=== PATIENT | female | born 1945 | race Caucasian/White ===

== ENCOUNTER → 2016-10-01 | Outpatient (CLI) | payer MEDICARE, OTHER ==
[2016-10-01 10:31] LABS: Basophils # (A) 0.1 k/uL (0-0.2); Basophils % (A) 1 %; CHCM 33.5; Eosinophils # (A) 0.2 k/uL (0-0.7); Eosinophils % (A) 3 %; HCT 43.4 % (34.0-46.0); HGB 14.5 gm/dL (11.4-16.0); Luc # (Auto) 0.15; Luc % (Auto) 3; Lymphocytes # (A) 1.5 k/uL (1.0-4.8); Lymphocytes % (A) 25 %; MCH 31.2 pg (25.0-35.0); MCHC 33.5 g/dL (31.0-37.0); MCV 93.1 fL (80.0-100.0); Mean Platelet Volume 7.3; Monocytes # (A) 0.3 k/uL (0-1.0); Monocytes % (A) 4 %; Neutrophils # (A) 3.9 k/uL (1.3-7.7); Neutrophils % (A) 65 %; RBC 4.66 m/uL (3.80-5.40); RDW 13.9 % (11.5-15.5); WBC (Perox) 5.96
[2016-10-01 10:44] LABS: ALT 54 U/L (9-52); AST 46 U/L (14-36); Alkaline Phosphatase 84 U/L (38-126); Anion Gap 9 mmol/L; Blood Urea Nitrogen 9 mg/dL (7-17); Calcium 9.9 mg/dL (8.4-10.2); Carbon Dioxide 31 mmol/L (22-30); Chloride 100 mmol/L (98-107); Cholesterol 244 mg/dL (<200); Glucose 222 mg/dL (74-99); HDL Cholesterol 80 mg/dL (40-60); Non-African American GFR(MDRD) >60 (>60 ml/min/1.73 sqM); Potassium 4.9 mmol/L (3.5-5.1); Sodium 140 mmol/L (137-145); Total Protein 7.2 g/dL (6.3-8.2); Triglycerides 157 mg/dL (<150)
[2016-10-01 11:45] LABS: Hemoglobin A1C 8.1 % (4.2-6.1)
== END | disposition home or self-care (01) ==
LOC: LABWHC1 09:27
PROVIDERS: ATTEND Internal Medicine Gastroenterology
DX: R10.9 Unspecified abdominal pain (principal); R19.7 Diarrhea, unspecified; K76.0 Fatty (change of) liver, not elsewhere classified; I10 Essential (primary) hypertension; E03.9 Hypothyroidism, unspecified; E11.9 Type 2 diabetes mellitus without complications; Z79.899 Other long term (current) drug therapy
CPT/HCPCS: 36415; 80053; 80061; 82043; 82306; 83036; 84439; 84443; 85025

== ENCOUNTER → 2016-10-29 | Outpatient (CLI) | payer MEDICARE, OTHER ==
--- NOTE | 2016-10-29 15:38 | US ---
EXAMINATION TYPE: US thyroid st tissue head/neck DATE OF EXAM: 10/29/2016 3:24 PM COMPARISON: prior us in pacs Real-time, linear array sonography is performed over the bilateral thyroid lobes. CLINICAL HISTORY: E04.1 Thyroid nodule. pt states palpable areas along rt side of thyroid area; [facility] thyroid meds GLAND SIZE: Right Lobe: 4.4 x 1.2 x 0.9 cm Overall Parenchyma: heterogenous Left Lobe: 4.6 x 1.9 x 1.2 cm Overall Parenchyma: heterogeneous Isthmus Thickness: 0.4 cm NODULES RIGHT: # of nodules measured on right: 0 LEFT: # of nodules measured on left: 0 ISTHMUS: # of nodules measured in the isthmus: 0 Bilateral neck scanned, no evidence of lymphadenopathy. Overall very lobular, heterogeneous and attenuating thyroid tissue. Unable to distinct visualize ind ividual nodules. Patient's palpable area corresponds to nodularity around isthmus area. IMPRESSION: Thyroid tissue is somewhat lobular and heterogeneous correlate for thyroiditis. No distinct solid or cystic nodules.
[2016-10-29 17:46] LABS: Hepatitis C Virus IgG Index 0.01
[2016-10-29 17:48] LABS: Hepatitis C Virus IgG Ab Negative (Negative)
--- NOTE | 2016-11-01 13:12 | MM ---
Reason for exam: screening (asymptomatic). Last mammogram was performed 1 year ago. History: Patient is postmenopausal and has history of colon cancer at age 63. Benign left mammotome panel of the left breast, July 05, 2007. Took hormonal contraceptives for 3 years beginning at age 19. Physical Findings: A clinical breast exam by your physician is recommended on an annual basis and results should be correlated with mammographic findings. MG Screening Mammo w CAD Bilateral CC and MLO view(s) were taken. Prior study comparison: October 27, 2015, bilateral MG screening mammo w CAD. September 17, 2014, bilateral MG diagnostic mammo w CAD [facility]. The breast tissue is almost entirely fat. Previous mammotome biopsy within the left breast. No significant changes when compared with prior studies. ASSESSMENT: Benign, BI-RAD 2 RECOMMENDATION: Routine screening mammogram of both breasts in 1 year.
== END | disposition home or self-care (01) ==
LOC: RADUSWWP 14:52
PROVIDERS: ATTEND Family Medicine
DX: Z12.31 Encounter for screening mammogram for malignant neoplasm of breast (principal); E04.1 Nontoxic single thyroid nodule; G47.00 Insomnia, unspecified; J30.2 Other seasonal allergic rhinitis
CPT/HCPCS: 86803; 84439; 84443; 76536; G0202

== ENCOUNTER 2017-03-30 08:07 | Day surgery (SDC) | payer MEDICARE, OTHER ==
[2017-03-28 14:55] VITALS: BMI 31.7
[~2017-03-30 08:07] MED LIST: LACTATED RINGERS 1,000 ML IV SCH
[2017-03-30 09:19] LABS: Glucose,Whole Blood 197 mg/dL (75-99)
[2017-03-30 09:34] VITALS: RESP 18; TEMP 98.3
[2017-03-30] MEDS ORDERED: LIDOCAINE 1% 20 ML VIAL (10MG/ML) FOR IV START INTRADERMA ONE (09:53)
[2017-03-30] MEDS ORDERED: PROPOFOL 10 MG/ML 20 ML VIAL IV ONE (10:17)
[2017-03-30] MEDS ORDERED: LIDOCAINE 1% INJ 10MG/ML (20 ML MDV) ONE (10:17)
[2017-03-30 10:38] VITALS: BP 116/63; PULSE 73
--- NOTE | 2017-03-30 11:02 | P.PCN ---
Date of Procedure: 03/30/17 Preoperative Diagnosis: Postoperative Diagnosis: Procedure(s) Performed: BRIEF HISTORY: Patient is a 71-year-old pleasant white female, scheduled for an elective colonoscopy as a part of surveillance of prior history of colon cancer diagnosed in 2009 for which she underwent right hemicolectomy. Her last colonoscopy was 4 years ago and was noted to have a tumor adenoma. PROCEDURE PERFORMED: Colonoscopy with biopsy. PREOPERATIVE DIAGNOSIS: History of colon cancer and colon polyps. IV sedation per Anesthesia. PROCEDURE: After informed consent was obtained, the patient, was brought into the endoscopy unit. IV sedation was administered by Anesthesia under continuous monitoring. Digital rectal examination was normal. Initially the Olympus CF- 160 flexible video colonoscope was then inserted in the rectum, gradually advanced into the right colon with ileocolonic anastomosis was visualized and appeared normal. The ascending colon, transverse colon, descending colon, sigmoid colon, and rectum appeared normal. In the mid transverse colon there was a 5 mm polyp that was removed by biopsy. Retroflexion was performed in the rectum and no lesions were seen. The patient tolerated the procedure well. IMPRESSION: 5 mm polyp in the mid transverse colon status post removal by biopsy Rest of the colon appeared normal RECOMMENDATIONS: Findings of this examination were discussed with the patient as well as her family. She was advised to follow with the biopsy results and she can have a repeat surveillance colonoscopy in 3 years. Implants: Indications for Procedure: Operative Findings: Description of Procedure:
== END 2017-03-30 11:12 | disposition home or self-care (01) ==
LOC: ORWHC2ENDO 08:07
PROVIDERS: ATTEND Internal Medicine Gastroenterology
DX: Z12.11 Encounter for screening for malignant neoplasm of colon (principal); D12.3 Benign neoplasm of transverse colon; Z85.038 Personal history of other malignant neoplasm of large intestine; Z90.49 Acquired absence of other specified parts of digestive tract; Z86.010 Personal history of colon polyps; I10 Essential (primary) hypertension; E11.9 Type 2 diabetes mellitus without complications; E07.9 Disorder of thyroid, unspecified; K21.9 Gastro-esophageal reflux disease without esophagitis; Z79.899 Other long term (current) drug therapy; Z88.5 Allergy status to narcotic agent; Z88.0 Allergy status to penicillin; Z88.2 Allergy status to sulfonamides; Z91.041 Radiographic dye allergy status; Z87.891 Personal history of nicotine dependence
CPT/HCPCS: 88305; 45380; J2001; J2704

== ENCOUNTER → 2017-08-15 | Outpatient (CLI) | payer MEDICARE, OTHER ==
--- NOTE | 2017-08-15 15:25 | XR ---
EXAMINATION TYPE: XR Hip Limited LT DATE OF EXAM: 08/15/2017 COMPARISON: NONE HISTORY: Pain TECHNIQUE: 2 views submitted FINDINGS: There is no evidence of erosive change or acute fracture. Hypertrophic change of the acetabulum noted . Surgical clip in the pelvis. Hypertrophic change involving the greater trochanter. Concentric narro wing the joint space. No erosive changes. IMPRESSION: 1. No evidence of acute fracture or dislocation. 2. 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 Follow-up with MRI as clinica lly warranted.
--- NOTE | 2017-08-15 15:26 | XR ---
EXAM TYPE: LUMBAR SPINE X RAY SERIES COMPARISON: NONE HISTORY: Pain TECHNIQUE: 4 views are submitted. FINDINGS: Alignment is anatomic. The pedicles are intact. The transverse processes are intact. There is no s pondylolysis or spondylolisthesis. Surgical clips in the right upper quadrant. Hypertrophic and dege nerative change spine. Multilevel facet arthropathy noted. Vascular calcifications of the aorta. Diff use osteopenia noted. Slight curvature of the spine. IMPRESSION: 1. Multilevel moderate degenerative disc disease consider follow-up MRI. Back space to assess for spi nal stenosis. Foraminal encroachment at levels L3-S1 suspected..
== END | disposition home or self-care (01) ==
LOC: RADXRMAIN 14:58
PROVIDERS: ATTEND Physician Assistant
DX: M51.36 Other intervertebral disc degeneration, lumbar region (principal); M12.852 Other specific arthropathies, not elsewhere classified, left hip
CPT/HCPCS: 72100; 73501

== ENCOUNTER → 2017-10-18 | Outpatient (CLI) | payer MEDICARE, OTHER ==
--- NOTE | 2017-10-18 15:32 | XR ---
EXAMINATION TYPE: XR chest 2V DATE OF EXAM: 10/18/2017 COMPARISON: NONE HISTORY: Hemoptysis, acute bronchitis TECHNIQUE: Frontal and lateral views of the chest are obtained. FINDINGS: There is no focal air space opacity, pleural effusion, or pneumothorax seen. The cardiac silhouette size is remarkable for enlarged heart. The osseous structures are showing probable old l eft-sided rib fractures at the seventh and eighth ribs laterally. The patient is rotated. Interstitiu m is mildly prominent. Question old granulomatous disease. Prominent lung volume may be indicative of underlying COPD. IMPRESSION: Cardiomegaly. Suspect underlying interstitial lung disease. Additional findings above.
== END | disposition home or self-care (01) ==
LOC: RADXRMAIN 15:06
PROVIDERS: ATTEND Physician Assistant
DX: I51.7 Cardiomegaly (principal)
CPT/HCPCS: 71046

== ENCOUNTER → 2017-12-01 | Outpatient (CLI) | payer MEDICARE, OTHER ==
--- NOTE | 2017-12-02 09:25 | MM ---
Reason for exam: screening (asymptomatic). Last mammogram was performed 1 year and 1 month ago. History: Patient is postmenopausal and has history of colon cancer at age 63. Benign left mammotome panel of the left breast, July 05, 2007. Took hormonal contraceptives for 3 years beginning at age 19. Physical Findings: A clinical breast exam by your physician is recommended on an annual basis and results should be correlated with mammographic findings. MG 3D Screening Mammo W/Cad Bilateral CC and MLO view(s) were taken. Prior study comparison: October 29, 2016, bilateral MG screening mammo w CAD. October 27, 2015, bilateral MG screening mammo w CAD. There are scattered fibroglandular densities. There is no discrete abnormality. No significant changes when compared with prior studies. ASSESSMENT: Negative, BI-RAD 1 RECOMMENDATION: Routine screening mammogram of both breasts in 1 year.
== END | disposition home or self-care (01) ==
LOC: RADMAMWWP 07:26
PROVIDERS: ATTEND Family Medicine
DX: Z12.31 Encounter for screening mammogram for malignant neoplasm of breast (principal)
CPT/HCPCS: 77063; 77067

== ENCOUNTER → 2018-02-02 | Outpatient (CLI) | payer MEDICARE, OTHER ==
--- NOTE | 2018-02-02 18:42 | US ---
EXAMINATION TYPE: US thyroid st tissue head/neck DATE OF EXAM: 02/02/2018 COMPARISON: US 2017 CLINICAL HISTORY: E04.1 Thyroid Nodule. Thyroid nodules, patient on thyroid meds GLAND SIZE: Right Lobe: 3.9 x 1.2 x 1.4 cm Overall Parenchyma: heterogenous Left Lobe: 3.9 x 1.1 x 1.0 cm Overall Parenchyma: heterogeneous Isthmus Thickness: 0.4 cm NODULES RIGHT: # of nodules measured on right: 0 LEFT: # of nodules measured on left: 0 ISTHMUS: # of nodules measured in the isthmus: 0 Bilateral neck scanned, no evidence of lymphadenopathy. Overall lobular heterogeneous thyroid without any definite nodules seen at this time. IMPRESSION: Negative thyroid sonogram. No discrete mass.
== END | disposition home or self-care (01) ==
LOC: RADUSWWP 16:18
PROVIDERS: ATTEND Family Medicine
DX: E04.1 Nontoxic single thyroid nodule (principal)
CPT/HCPCS: 76536

== ENCOUNTER → 2018-05-15 | Outpatient (CLI) | payer MEDICARE, OTHER ==
--- NOTE | 2018-05-15 15:19 | XR ---
EXAMINATION TYPE: XR chest 2V DATE OF EXAM: 05/15/2018 COMPARISON: Prior chest x-ray 10/18/2017 HISTORY: Cough TECHNIQUE: Frontal and lateral views of the chest are obtained. FINDINGS: There is airspace disease suspected in the right lower lobe. No pneumothorax or pleural ef fusion. Heart size is enlarged. No pneumothorax or pleural effusion. Pulmonary vascularity and dar s how similar appearance. IMPRESSION: Correlate for right lower lobe pneumonia. Follow-up to resolution to exclude underlying mass. Cardiomegaly.
== END | disposition home or self-care (01) ==
LOC: RADXRMAIN 14:26
PROVIDERS: ATTEND Midwife
DX: I51.7 Cardiomegaly (principal)
CPT/HCPCS: 71046

== ENCOUNTER → 2018-12-04 | Outpatient (CLI) | payer MEDICARE, OTHER ==
--- NOTE | 2018-12-05 13:21 | MM ---
Reason for exam: screening (asymptomatic). Last mammogram was performed 1 year ago. History: Patient is postmenopausal and has history of colon cancer at age 63. Benign left mammotome panel of the left breast, July 05, 2007. Took hormonal contraceptives for 3 years beginning at age 19. Physical Findings: A clinical breast exam by your physician is recommended on an annual basis and results should be correlated with mammographic findings. MG 3D Screening Mammo W/Cad Bilateral CC and MLO view(s) were taken. Prior study comparison: December 01, 2017, bilateral MG 3d screening mammo w/cad. October 29, 2016, bilateral MG screening mammo w CAD. There are scattered fibroglandular densities. Previous mammotome biopsy in the left breast. No significant changes when compared with prior studies. ASSESSMENT: Benign, BI-RAD 2 RECOMMENDATION: Routine screening mammogram of both breasts in 1 year.
== END ==
LOC: RADMAMWWP 07:34
PROVIDERS: ATTEND Family Medicine
DX: Z12.31 Encounter for screening mammogram for malignant neoplasm of breast (principal)
CPT/HCPCS: 77063; 77067

== ENCOUNTER → 2019-02-08 | Outpatient (CLI) | payer MEDICARE, OTHER ==
--- NOTE | 2019-02-08 19:06 | US ---
EXAMINATION TYPE: US thyroid st tissue head/neck DATE OF EXAM: 02/08/2019 COMPARISON: 02/02/2018 CLINICAL HISTORY: E04.1 SINGLE THYROID NODULE. On thyroid medicine. Patient states she has a hard ti me swallowing. GLAND SIZE: Right Lobe: 3.8 x 1.2 x 1.1 cm Overall Parenchyma: heterogenous Left Lobe: 4.3 x 1.3 x 1.3 cm Overall Parenchyma: heterogeneous Isthmus Thickness: 0.6 cm NODULES RIGHT: # of nodules measured on right: 0 LEFT: # of nodules measured on left: 0 ISTHMUS: # of nodules measured in the isthmus: 0 Bilateral neck scanned, no evidence of lymphadenopathy. Bilateral lobes appear lobular with no prominent masses or lesions seen. IMPRESSION: 1. No discrete nodules larger than 1 cm bilateral thyroid lobes.
== END | disposition home or self-care (01) ==
LOC: RADUSWWP 16:14
PROVIDERS: ATTEND Family Medicine
DX: E04.1 Nontoxic single thyroid nodule (principal)
CPT/HCPCS: 76536

== ENCOUNTER → 2019-05-31 | Outpatient (CLI) | payer MEDICARE, OTHER ==
[2019-05-31 16:52] LABS: African American GFR (CKD) 83.6 (60.0-200.0); Albumin 4.6 g/dL (3.80-4.90); Albumin/Globulin Ratio 2.71 (1.60-3.17); BUN/Creat Ratio 21.25 Ratio (12.00-20.00); Calcium 9.4 mg/dL (8.7-10.3); Chol/HDL Ratio 2.02; Globulin 1.7 g/dL (1.6-3.3); LDL Cholesterol,Calculated 69.6 mg/dL (0.0-131.0); Non-African American GFR(CKD) 72.1 (60.0-200.0); Total Protein 6.3 g/dL (6.2-8.2); VLDL Calculation 13.4 mg/dL (5.00-40.00)
[2019-05-31 19:36] LABS: Urine Creatinine 91.5 mg/dL
== END | disposition home or self-care (01) ==
LOC: LABWHC1 09:15
PROVIDERS: ATTEND Internal Medicine Endocrinology, Diabetes & Metabolism
DX: E11.3519 Type 2 diabetes mellitus with proliferative diabetic retinopathy with macular edema, unspecified eye (principal)
CPT/HCPCS: 36415; 80053; 80061; 82043; 82570; 84443

== ENCOUNTER 2019-09-13 10:10 | Observation (INO) | payer MEDICARE, OTHER ==
[2019-09-13] MEDS ORDERED: SODIUM CHLORIDE 0.9% 500 ML 500 ML IV STA (10:49)
--- NOTE | 2019-09-13 11:03 | ED ---
General Adult HPI - General Chief complaint: Neuro Symptoms/Deficit Stated complaint: tongue/arm numbness Time Seen by Provider: 09/13/19 10:15 Source: patient, RN notes reviewed, old records reviewed Mode of arrival: ambulatory Limitations: no limitations - History of Present Illness Initial comments: This is a 73-year-old female presents emergency department stating that the distal aspect of her tongue was tingly feeling and her left arm had tingly feeling all the way up and down it. Patient states she's had this multiple times before and it usually goes away in 2 or 3 hours. Patient states currently the arm tingling is gone but the tongue still tingles. Patient's states there is no swelling to the tongue. Patient states she's never been seen for before because it always goes away. Patient states started about 4 months ago and has happened about 5 or 6 times since then. Patient denies any fever chills or cough per patient denies any lightheadedness or dizziness. Patient denies any chest pain palpitations difficulty breathing shortest breath. Patient denies any fever chills or cough per patient denies any abdominal pain patient has nausea vomiting diarrhea. Patient denies any actual numbness or weakness. Patient denies any speech disturbance or visual disturbance. Patient denies any headache. - Related Data Home Medications Medication Instructions Recorded Confirmed Dapagliflozin Propanediol [Farxiga] 5 mg PO DAILY 03/28/17 09/13/19 Pioglitazone HCl [Actos] 30 mg PO DAILY 03/28/17 09/13/19 Albuterol Sulfate [Proair Hfa] 1 - 2 puff INHALATION RT-Q6H PRN 09/13/19 09/13/19 Levothyroxine Sodium [Synthroid] 100 mcg PO DAILY 09/13/19 09/13/19 Lisinopril [Zestril] 10 mg PO DAILY 09/13/19 09/13/19 Metoprolol Tartrate [Lopressor] 25 mg PO BID 09/13/19 09/13/19 Omeprazole 20 mg PO DAILY PRN 09/13/19 09/13/19 Allergies Allergy/AdvReac Type Severity Reaction Status Date / Time codeine Allergy Rash/Hives Verified 09/13/19 11:32 Iodinated Contrast Media Allergy Anaphylaxis Verified 09/13/19 11:32 [Iodinated Contrast- Oral and IV Dye] Penicillins Allergy Rash/Hives Verified 09/13/19 11:32 prednisone Allergy Nausea & Verified 09/13/19 11:32 Vomiting Sulfa (Sulfonamide Allergy Rash/Hives Verified 09/13/19 11:32 Antibiotics) Review of Systems ROS Statement: Those systems with pertinent positive or pertinent negative responses have been documented in the HPI. ROS Other: All systems not noted in ROS Statement are negative. Past Medical History Past Medical History: Cancer, Diabetes Mellitus, GERD/Reflux, Hypertension, Osteoarthritis (OA), Thyroid Disorder, Vascular Disorder Additional Past Medical History / Comment(s): Colon ca. States having numbness and tingling in L upper ext. History of Any Multi-Drug Resistant Organisms: None Reported Past Surgical History: Cholecystectomy, Tonsillectomy Additional Past Surgical History / Comment(s): D&C, Colon surgery for colon cancer. Past Anesthesia/Blood Transfusion Reactions: Previous Problems w/ Anesthesia Additional Past Anesthesia/Blood Transfusion Reaction / Comment(s): Difficulty waking up from surgery. Past Psychological History: No Psychological Hx Reported Smoking Status: Former smoker - Past Family History Mother Family Medical History: Cancer Additional Family Medical History / Comment(s): Colon General Exam - General Exam Comments Initial Comments: GENERAL: Patient is well-developed and well-nourished. Patient is nontoxic and well- hydrated and is in no acute distress. ENT: Neck is soft and supple. No significant lymphadenopathy is noted. Oropharynx is clear. Moist mucous membranes. Neck has full range of motion without eliciting any pain. Patient's tongue is not swollen EYES: The sclera were anicteric and conjunctiva were pink and moist. Extraocular mov ements were intact and pupils were equal round and reactive to light. Eyelids were unremarkable. PULMONARY: Unlabored respirations. Good breath sounds bilaterally. No audible rales rhonchi or wheezing was noted. CARDIOVASCULAR: There is a regular rate and rhythm without any murmurs gallops or rubs. ABDOMEN: Soft and nontender with normal bowel sounds. SKIN: Skin is clear with no lesions or rashes and otherwise unremarkable. NEUROLOGIC: Patient is alert and oriented x3. Cranial nerves II through XII are grossly intact. Motor and sensory are also intact. Normal speech, volume and content. Symmetrical smile. Patient has an NIH of 0 MUSCULOSKELETAL: Normal extremities with adequate strength and full range of motion. No lower extremity swelling or edema. No calf tenderness. LYMPHATICS: No significant lymphadenopathy is noted PSYCHIATRIC: Normal psychiatric evaluation. Limitations: no limitations Course Vital Signs 09/13/19 09/13/19 09/13/19 10:15 11:40 12:06 Temperature 97.8 F Pulse Rate 68 87 87 Respiratory 18 18 16 Rate Blood Pressure 208/73 203/88 191/78 O2 Sat by Pulse 99 98 99 Oximetry 09/13/19 12:30 Temperature Pulse Rate 63 Respiratory 18 Rate Blood Pressure 196/71 O2 Sat by Pulse 100 Oximetry Medical Decision Making - Medical Decision Making EKG showed normal sinus rhythm at 66 bpm NJ interval 162 QRS is 76 QT intervals 410 QTC is 429. Patient's EKG shows no ST segment elevation or depression. CT of the head shows no acute abnormality. Chest x-ray shows no acute abnormalities. Patient states symptoms have resolved at this point. I spoke with Dr. Giraldo he agreed to admit the patient admitted the patient wrote admitting orders. I gave the patient her morning dose of metoprolol sick she did not take and also gave her IV hydralazine - Lab Data Result diagrams: 09/13/19 10:31 09/13/19 10:31 Lab Results 09/13/19 09/13/19 09/13/19 Range/Units 10:31 10:31 10:31 WBC 5.0 (3.8-10.6) k/uL RBC 4.52 (3.80-5.40) m/uL Hgb 14.0 (11.4-16.0) gm/dL Hct 44.2 (34.0-46.0) % MCV 97.9 (80.0-100.0) fL MCH 31.0 (25.0-35.0) pg MCHC 31.7 (31.0-37.0) g/dL RDW 13.8 (11.5-15.5) % Plt Count 200 (150-450) k/uL Neutrophils % 67 % Lymphocytes % 22 % Monocytes % 4 % Eosinophils % 2 % Basophils % 2 % Neutrophils # 3.3 (1.3-7.7) k/uL Lymphocytes # 1.1 (1.0-4.8) k/uL Monocytes # 0.2 (0-1.0) k/uL Eosinophils # 0.1 (0-0.7) k/uL Basophils # 0.1 (0-0.2) k/uL PT 10.3 (9.0-12.0) sec INR 1.0 (<1.2) APTT 24.8 (22.0-30.0) sec Sodium 139 (137-145) mmol/L Potassium 4.1 (3.5-5.1) mmol/L Chloride 100 (98-107) mmol/L Carbon Dioxide 30 (22-30) mmol/L Anion Gap 9 mmol/L BUN 17 (7-17) mg/dL Creatinine 0.74 (0.52-1.04) mg/dL Est GFR (CKD-EPI)AfAm >90 (>60 ml/min/1.73 sqM) Est GFR (CKD-EPI)NonAf 80 (>60 ml/min/1.73 sqM) Glucose 125 H (74-99) mg/dL Calcium 9.7 (8.4-10.2) mg/dL Total Bilirubin 0.9 (0.2-1.3) mg/dL AST 24 (14-36) U/L ALT 17 (4-34) U/L Alkaline Phosphatase 63 (38-126) U/L Troponin I (0.000-0.034) ng/mL Total Protein 7.6 (6.3-8.2) g/dL Albumin 4.8 (3.5-5.0) g/dL 09/13/19 Range/Units 10:31 WBC (3.8-10.6) k/uL RBC (3.80-5.40) m/uL Hgb (11.4-16.0) gm/dL Hct (34.0-46.0) % MCV (80.0-100.0) fL MCH (25.0-35.0) pg MCHC (31.0-37.0) g/dL RDW (11.5-15.5) % Plt Count (150-450) k/uL Neutrophils % % Lymphocytes % % Monocytes % % Eosinophils % % Basophils % % Neutrophils # (1.3-7.7) k/uL Lymphocytes # (1.0-4.8) k/uL Monocytes # (0-1.0) k/uL Eosinophils # (0-0.7) k/uL Basophils # (0-0.2) k/uL PT (9.0-12.0) sec INR (<1.2) APTT (22.0-30.0) sec Sodium (137-145) mmol/L Potassium (3.5-5.1) mmol/L Chloride (98-107) mmol/L Carbon Dioxide (22-30) mmol/L Anion Gap mmol/L BUN (7-17) mg/dL Creatinine (0.52-1.04) mg/dL Est GFR (CKD-EPI)AfAm (>60 ml/min/1.73 sqM) Est GFR (CKD-EPI)NonAf (>60 ml/min/1.73 sqM) Glucose (74-99) mg/dL Calcium (8.4-10.2) mg/dL Total Bilirubin (0.2-1.3) mg/dL AST (14-36) U/L ALT (4-34) U/L Alkaline Phosphatase (38-126) U/L Troponin I <0.012 (0.000-0.034) ng/mL Total Protein (6.3-8.2) g/dL Albumin (3.5-5.0) g/dL Disposition Clinical Impression: Transient cerebral ischemia, Hypertensive urgency Disposition: ADMITTED IP TO THIS [facility] Time of Disposition: 12:47
[2019-09-13 11:07] LABS: Basophils # (A) 0.1 k/uL (0-0.2); Basophils % (A) 2 %; Eosinophils # (A) 0.1 k/uL (0-0.7); Eosinophils % (A) 2 %; HCT 44.2 % (34.0-46.0); Lymphocytes # (A) 1.1 k/uL (1.0-4.8); Lymphocytes % (A) 22 %; MCHC 31.7 g/dL (31.0-37.0); MCV 97.9 fL (80.0-100.0); Mean Platelet Volume 7.7; Monocytes # (A) 0.2 k/uL (0-1.0); Monocytes % (A) 4 %; Neutrophils # (A) 3.3 k/uL (1.3-7.7); Neutrophils % (A) 67 %; Platelet Count 200 k/uL (150-450); RBC 4.52 m/uL (3.80-5.40); RDW 13.8 % (11.5-15.5)
[2019-09-13 11:21] LABS: ALT 17 U/L (4-34); AST 24 U/L (14-36); African American GFR (CKD) >90 (>60 ml/min/1.73 sqM); Albumin 4.8 g/dL (3.5-5.0); Alkaline Phosphatase 63 U/L (38-126); Anion Gap 9 mmol/L; Blood Urea Nitrogen 17 mg/dL (7-17); Calcium 9.7 mg/dL (8.4-10.2); Carbon Dioxide 30 mmol/L (22-30); Chloride 100 mmol/L (98-107); Glucose 125 mg/dL (74-99); Non-African American GFR(CKD) 80 (>60 ml/min/1.73 sqM); Partial Thromboplastin Time 24.8 sec (22.0-30.0); Potassium 4.1 mmol/L (3.5-5.1); Prothrombin Time 10.3 sec (9.0-12.0); Sodium 139 mmol/L (137-145); Total Bilirubin 0.9 mg/dL (0.2-1.3); Total Protein 7.6 g/dL (6.3-8.2)
--- NOTE | 2019-09-13 11:25 | CT ---
EXAMINATION TYPE: CT brain wo con DATE OF EXAM: 09/13/2019 COMPARISON: None HISTORY: Tongue and Lt arm numbness CT DLP: [address]10.[address] of the brain was performed. The ventricles, basal cisterns and sulci overlying the cerebral convexities demonstrate mild enlargem ent. There is no evidence for intracranial hemorrhage or sulcal effacement. There is decreased attenuation about the periventricular white matter and deep white matter of both c erebral hemispheres, compatible with chronic small vessel ischemia. Differential diagnosis does inclu de demyelination. No mass effects are seen.No midline shift. Osseous calvarium is intact. If symptoms persist consider MRI. IMPRESSION: 1. Age related atrophic and chronic small vessel ischemic change without acute intracranial process s een at this time.
--- NOTE | 2019-09-13 11:28 | XR ---
EXAMINATION TYPE: XR chest 2V DATE OF EXAM: 09/13/2019 COMPARISON: NONE TECHNIQUE: PA and lateral views submitted. HISTORY: Altered mental status FINDINGS: The lungs are clear and there is no pneumothorax, pleural effusion, or focal pneumonia. Chronic rib deformities are seen. Heart size is normal. Coarsened interstitium suggests chronic interstitial srinivasa g disease. Arthropathy of the shoulders. Degenerative change of the spine. Atherosclerotic change aor ta. Surgical clips abdomen. IMPRESSION: 1. No acute process. Correlate for history of chronic interstitial lung disease.
[2019-09-13] MEDS ORDERED: hydrALAZINE HCL 20 MG/ML 1 ML VIAL IVP STA (12:49)
[2019-09-13] MEDS ORDERED: METOPROLOL TARTRATE 25 MG TAB PO STA (12:54)
[2019-09-13] MEDS ORDERED: ASPIRIN 325 MG TAB PO STA (12:56)
[2019-09-13 17:48] LABS: Glucose,Whole Blood 95 mg/dL (75-99)
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
[2019-09-13] MEDS ORDERED: ACETAMINOPHEN TAB 325 MG TAB PO PRN (18:19)
[2019-09-13] MEDS ORDERED: hydrALAZINE HCL 20 MG/ML 1 ML VIAL IVP PRN (18:20)
[2019-09-13] MEDS ORDERED: ONDANSETRON 4 MG/2 ML VIAL IVP PRN (18:20)
[2019-09-13] MEDS: LISINOPRIL 10 MG TAB PO SCH (18:29)
[2019-09-13 20:53] LABS: Glucose,Whole Blood 120 mg/dL (75-99)
[2019-09-13] MEDS: INSULIN ASPART (NovoLOG) 100 UNIT/ML VIAL SQ SCH (21:46)
[2019-09-13] MEDS: METOPROLOL TARTRATE 25 MG TAB PO SCH (21:46)
--- NOTE | 2019-09-13 22:41 | US ---
EXAMINATION TYPE: US carotid duplex BILAT DATE OF EXAM: 09/13/2019 COMPARISON: CT CLINICAL HISTORY: TIA versus CVA versus seizure. TIA versus CVA versus seizure. HTN. Previous smoker. EXAM MEASUREMENTS: RIGHT: Peak Systolic Velocity (PSV) cm/sec ----- Right CCA: 74.3 ----- Right ICA: 96.2 ----- Right ECA: 78.4 ICA/CCA ratio: 1.3 RIGHT: End Diastole cm/sec ----- Right CCA: 5.1 ----- Right ICA: 13.4 ----- Right ECA: 0.0 LEFT: Peak Systolic Velocity (PSV) cm/sec ----- Left CCA: 86.2 ----- Left ICA: 117.3 ----- Left ECA: 107.6 ICA/CCA ratio: 1.4 LEFT: End Diastole cm/sec ----- Left CCA: 6.0 ----- Left ICA: 10.7 ----- Left ECA: 0.0 VERTEBRALS (direction of flow): Right Vertebral: Antegrade Left Vertebral: Antegrade Rhythm: Normal Intimal thickening seen bilaterally. Minimal plaque seen bilateral carotid bifurcations. No elevated velocities obtained. IMPRESSION: There is antegrade flow in the vertebral arteries. The images and measurements suggest less than 20% stenosis in both internal carotid arteries. Criteria for Assigning % of Stenosis / Diameter reduction (Estimation based on the indirect measurements of the internal carotid artery velocities (ICA PSV). 1. Normal (no stenosis)=ICA PSV < 125 cm/s: ratio < 2.0: ICA EDV<40 cm/s. 2. Less than 50% stenosis=ICA PSV < 125 cm/s: ratio < 2.0: ICA EDV<40 cm/s. 3. 50 to 69% stenosis=ICA PSV of 125 to 230 cm/s: ration 2.0 ? 4.0: ICA EDV 40-100 cm/s. 4. Greater than 70% stenosis to near occlusion= ICA PSV > 230 cm/s: ratio > 4.0: ICA EDV > 100 cm/s. 5. Near occlusion= ICA PSV velocities may be low or undetectable: variable ratio and ICA EDV. 6. Total occlusion=unable to detect flow.
[2019-09-13] MEDS ORDERED: ALBUTEROL NEBULIZED 2.5 MG/3 ML INHALATION PRN (23:52)
[2019-09-13] MEDS ORDERED: ALPRAZolam 0.25 MG TAB PO PRN (23:52)
[2019-09-13] MEDS ORDERED: NON FORMULARY DRUG (Omeprazole [Omeprazole] 20 MG) PO PRN (23:52)
[2019-09-14 05:47] LABS: Glucose,Whole Blood 108 mg/dL (75-99)
[2019-09-14] MEDS ORDERED: LEVOTHYROXINE 100 MCG TAB PO SCH (06:30)
[2019-09-14] MEDS: INSULIN ASPART (NovoLOG) 100 UNIT/ML VIAL SQ SCH ×3 (06:32→17:42)
[2019-09-14 07:15] LABS: Basophils % (A) 1 %; Eosinophils # (A) 0.1 k/uL (0-0.7); Eosinophils % (A) 3 %; HCT 41.7 % (34.0-46.0); HGB 13.4 gm/dL (11.4-16.0); Lymphocytes # (A) 1.3 k/uL (1.0-4.8); Lymphocytes % (A) 29 %; MCH 31.6 pg (25.0-35.0); MCHC 32.1 g/dL (31.0-37.0); MCV 98.7 fL (80.0-100.0); Monocytes # (A) 0.3 k/uL (0-1.0); Monocytes % (A) 6 %; Neutrophils # (A) 2.4 k/uL (1.3-7.7); Neutrophils % (A) 57 %; Platelet Count 156 k/uL (150-450); RBC 4.22 m/uL (3.80-5.40); RDW 13.9 % (11.5-15.5); WBC 4.3 k/uL (3.8-10.6)
[2019-09-14 07:29] LABS: African American GFR (CKD) >90 (>60 ml/min/1.73 sqM); Anion Gap 6 mmol/L; Blood Urea Nitrogen 18 mg/dL (7-17); Carbon Dioxide 27 mmol/L (22-30); Chloride 105 mmol/L (98-107); Cholesterol 244 mg/dL (<200); Glucose 105 mg/dL (74-99); HDL Cholesterol 81 mg/dL (40-60); LDL Cholesterol,Calculated 146 mg/dL (0-99); Non-African American GFR(CKD) 87 (>60 ml/min/1.73 sqM); Potassium 4.2 mmol/L (3.5-5.1); Sodium 138 mmol/L (137-145); Triglycerides 83 mg/dL (<150)
[2019-09-14] MEDS ORDERED: PANTOPRAZOLE 40 MG TABLET PO SCH (07:30)
--- NOTE | 2019-09-14 07:43 | HP ---
HISTORY AND PHYSICAL DATE OF SERVICE: 09/13/2019 CHIEF COMPLAINT: Numbness and tingling of the left hand as well as tingling of the tongue, also. HISTORY OF PRESENT ILLNESS: This is a 73-year-old woman with a past medical history of multiple medical problems, multiple TIAs, history of diabetes, GERD, hypertension, DJD, hypothyroidism, vascular disorder, history of colon cancer, being followed by Dr. Casey in the outpatient setting was admitted with some tingling and numbness of the left arm and radiating to the tongue causing the tingling and numbness and the patient came to [facility], admitted for further evaluation and treatment. The symptoms lasted for 1-2 hours. The patient had a detailed evaluation in the ER and the patient admitted for further evaluation and treatment. The differential diagnosis between TIA or seizure disorder is being considered by Neurology at this time. The initial CAT scan showed age-related atrophic changes and small vessel ischemic changes. A carotid Doppler showed antegrade flow in the vertebral arteries, 20% stenosis of both internal carotid arteries are noted. There is no history of fever, chills or rigors. No history of headache, loss of consciousness, seizures. PAST MEDICAL HISTORY: TIA, history of diabetes, GERD, hypertension, DJD, hypothyroidism. MEDICATIONS: Home medications are: 1. Albuterol 1-2 puffs q.6 p.r.n. 2. Omeprazole 20 mg daily p.r.n. 3. Zestril 10 mg p.o. daily. 4. Synthroid 100 mcg p.o. daily. 5. Actos 30 mg p.o. daily. 6. Lopressor 25 mg p.o. b.i.d. 7. Farxiga 5 mg p.o. daily. ALLERGIES: ECOTRIN, IODINATED CONTRAST, PENICILLIN, PREDNISONE, SULFA. FAMILY HISTORY: History of colon cancer in the family. SOCIAL HISTORY: History of smoking. No alcohol intake. REVIEW OF SYSTEMS: ENT: No diminished vision or diminished hearing. CARDIOVASCULAR SYSTEM: As mentioned earlier. RESPIRATORY: As mentioned earlier. GI: No nausea. : No dysuria. NERVOUS SYSTEM: As mentioned earlier. MUSCULOSKELETAL: As mentioned earlier. DERMATOLOGY: Negative. ENDOCRINE: Hypothyroidism. CONSTITUTIONAL: As mentioned earlier. DERMATOLOGY: Negative. RHEUMATOLOGY: Negative. PSYCHIATRY: As mentioned earlier. PHYSICAL EXAM: Patient is alert and oriented x3. The pulse is 69, blood pressure 205/75, respiration 16, temperature 98.9, pulse ox 98% on room air. HEENT: Conjunctivae normal. Oral mucosa moist. NECK: No jugular venous distention. No carotid bruit, no lymph node enlargement. CARDIOVASCULAR SYSTEM: S1, S2, muffled. RESPIRATORY: Breath sounds diminished at the bases. No rhonchi. No crackles. ABDOMEN: Soft, nontender. No mass palpable. LEGS: No edema, no swelling. NERVOUS SYSTEM: Higher functions as mentioned earlier. Moves all 4 limbs. No focal motor or sensory deficits. LYMPHATICS: No lymph node enlargement in the neck or axillae. SKIN: No ulcer, no rash or bleeding. JOINT: No active arthropathy. LABS: CBC within normal limits and INR is 1 and glucose 125. ASSESSMENT: 1. Numbness and tingling of the left arm and tongue, possible acute transient ischemic attack. 2. Rule out sensory stroke. 3. Accelerated hypertension, hypertensive urgency. 4. History of multiple transient ischemic attacks in the past. 5. Diabetes mellitus type 2. 6. Gastroesophageal reflux disease. 7. Hypertension. 8. Degenerative joint disease. 9. Hypothyroidism. 10.History of colon cancer. 11.History of cholecystectomy. 12.History of degenerative joint disease. 13.Remote history of nicotine dependence. RECOMMENDATION: In this 73-year-old woman who presented with multiple complex medical issues, will monitor the patient closely, continue with the current management initiated, antiplatelet agents, neuro checks, neurology consultation has been sought. Neurovascular workup is underway. I would also recommend MRI scan the brain to rule out any acute stroke. Otherwise, will continue to monitor. DVT prophylaxis. Resume the home medications. Recommend close followup with Neurology and as well as Dr. Casey in the outpatient setting. Discussed with the patient who understands. Further recommendations to follow. MMODL / IJN: [id number] /
[2019-09-14] MEDS ORDERED: HEPARIN SODIUM,PORCINE 5,000 UNIT/ML 1 ML VIAL SQ SCH (09:00)
[2019-09-14] MEDS ORDERED: PATIENT'S OWN MED (Dapagliflozin Propanediol [Farxiga] 5 MG) PO SCH (09:00)
[2019-09-14] MEDS ORDERED: PIOGLITAZONE 30 MG TAB PO SCH (09:00)
[2019-09-14] MEDS: LISINOPRIL 10 MG TAB PO SCH ×2 (09:07→11:47)
[2019-09-14] MEDS: METOPROLOL TARTRATE 25 MG TAB PO SCH (09:07)
--- NOTE | 2019-09-14 10:34 | MR ---
EXAMINATION TYPE: MR brain wo con DATE OF EXAM: 09/14/2019 COMPARISON: CT brain 09/13/2019 HISTORY: TIA versus CVA versus seizure CONTRAST: Performed utilizing 0 mL intravenous Gadavist gadolinium contrast. TECHNIQUE: Multiplanar, multiecho imaging on a 3.0 Nidia magnet is performed through the brain. Stud y is performed within 24 hours of arrival to the hospital. Fast brain protocol was utilized due to cl austrophobia. The craniovertebral junction is normal. The pituitary is normal. Diffusion-weighted imaging is performed. No abnormal hyperintensity is present to suggest an acute i ntracranial infarct or acute ischemic change. Couple of subcortical white matter changes are in the bilateral parietal lobes. Periventricular white matter hypodensity is present, most likely on the basis of chronic white matter ischemic changes. La teral ventricles have mild prominence. No temporal horn dilatation is evident. Third ventricle and fo urth ventricle are midline. There is mild prominence of sulci. IMPRESSIONS: 1. Mild age-related atrophy with periventricular white matter ischemic changes. 2. No acute intracranial ischemic area evident.
--- NOTE | 2019-09-14 10:38 | MR ---
EXAMINATION TYPE: MR MRA/MRV head wo con DATE OF EXAM: 09/14/2019 COMPARISON: None HISTORY: CVA VS FOCAL SEIZURE TECHNIQUE: Time of flight images focusing on the [place] were performed without contrast.. 2-D and 3-D postprocessing imaging is performed. FINDINGS: MRA [place]: Vertebral arteries are codominant. Basilar artery is unremarkable. Internal carotid arteries bifurcate normally and A1 and M1 segments. A2 segments are normal. A small faint anterior to the trachea and artery may be present. Small right posterior communicating artery m ay be present. Left posterior communicating artery is not identified. Middle cerebral artery branches appear unremarkable. Posterior cerebral vasculature appears normal. MRV: Sagittal sinus is patent. Straight sinus is normal. Beam James is unremarkable. The right sigmoi d sinus is dominant. Venous flow appears normal and symmetrical. IMPRESSION: 1. Normal MRA [place]. Her graft 2. Normal MRV
[2019-09-14] MEDS ORDERED: ASPIRIN 325 MG TAB PO SCH (12:00)
[2019-09-14 12:55] LABS: Glucose,Whole Blood 87 mg/dL (75-99)
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
--- NOTE | 2019-09-14 16:29 | EEG ---
ELECTROENCEPHALOGRAM REPORT DATE OF SERVICE: 09/14/2019. PREAMBLE: This is a 73-year-old female with recurrent episodes of left-sided paresthesias and tongue numbness. This study is performed to evaluate for any epileptiform activity. EEG FINDINGS: A routine 21-channel awake digital EEG recording was accomplished utilizing the 10/20 international system with bipolar and referential montages. The background consists of well developed, well regulated, moderate voltage activity in 9-10 Hz alpha. Background is posterior-dominant and reactive to eye opening and closing. Frequent bifrontal temporal dysrhythmic slowing in polymorphic delta and theta activity was seen bilaterally, right more than left. Intermittent right temporal sharp waves were seen. No electrographic seizure recorded. Photic driving response was seen. Drowsiness was seen with appearance of bilaterally symmetric theta frequency rhythm. Deeper stages of sleep were not seen. EKG rhythm lead revealed no obvious arrhythmia. IMPRESSION: This is an abnormal EEG due to: 1. Bifrontal-temporal slowing, right more than left. 2. Intermittent right temporal sharp waves. This is suggestive of focal cortical neuronal dysfunction with underlying cortical irritability and tendency for seizure. Clinical correlation is strongly recommended. MMODL / IJN: [id number] / MTDMarita
[2019-09-14] MEDS ORDERED: LISINOPRIL 5 MG TAB PO STA (17:07)
[2019-09-14 21:06] VITALS: BP 180/80; PULSE 61; RESP 16; TEMP 97.7
--- NOTE | 2019-09-15 07:12 | DS ---
DISCHARGE SUMMARY DATE OF SERVICE: 09/14/2019 FINAL DIAGNOSES: 1. Numbness and tingling of the left arm and possible acute transient ischemic attack. 2. Accelerated hypertension, hypertensive urgency. 3. History of multiple transient ischemic attacks in the past. 4. Diabetes mellitus type 2. 5. Gastroesophageal reflux disease. 6. Hypertension. 7. Degenerative joint disease. 8. Hypothyroidism. 9. History of colon cancer. 10.History of cholecystectomy. 11.History of degenerative joint disease. 12.Remote history of nicotine dependence. DISCHARGE DISPOSITION: The patient will be discharged in a stable condition with guarded prognosis. Discharge cleared by Neurology. HISTORY OF PRESENT ILLNESS: This is a 73-year-old woman with a past medical history of multiple medical problems being followed for Dr. Kenneth Casey in outpatient setting, admitted with numbness and tingling. The patient improved significantly with symptomatic treatment. MRI scan did not show an acute stroke. The patient is extremely keen on going home at this time. Blood pressure better controlled at 161/70. On exam, vitals are stable. CARDIOVASCULAR SYSTEM: S1, S2. ABDOMEN: Soft. NERVOUS SYSTEM: No focal deficits. DISCHARGE ADVICE: Diet is cardiac diet. Activity limited until followup. Follow up with Dr. Kenneth Casey in 2-3 days. Follow up with Neurology, Dr. Marita Villaotro in 1 week. DISCHARGE MEDICATIONS ARE FOLLOWS:: 1. Actos 30 mg p.o. daily. 2. farxiga 5 mg p.o. daily. 3. Lopressor 25 mg p.o. b.i.d. 4. Omeprazole 20 mg p.o. daily.. 5. Albuterol 1-2 puffs q.6 p.r.n. 6. Synthroid 100 mcg p.o. daily. 7. Zestril 10 mg p.o. daily. 8. Ecotrin 81 mg p.o. daily. 9. Lipitor 20 mg q.h.s. Once again, the patient will be discharged in stable condition with extremely guarded prognosis. Further recommendations to follow. MMODL / IJN: [id number] / MTDD
--- NOTE | 2019-09-15 08:21 | ECHOF ---
Referral Reason:TIA MEASUREMENTS -------- HEIGHT: 162.6 cm WEIGHT: 79.4 kg BP: 122/68 RVIDd: 2.7 cm (< 3.3) IVSd: 1.1 cm (0.6 - 1.1) LVIDd: 4.1 cm (3.9 - 5.3) LVPWd: 1.3 cm (0.6 - 1.1) IVSs: 1.8 cm LVIDs: 2.4 cm LVPWs: 1.6 cm LA Diam: 3.4 cm (2.7 - 3.8) LAESV Index (A-L): 28.01 ml/m Ao Diam: 3.1 cm (2.0 - 3.7) AV Cusp: 2.0 cm (1.5 - 2.6) MV EXCURSION: 18.221 mm (> 18.000) MV EF SLOPE: 101 mm/s (70 - 150) EPSS: 0.1 cm MV E Rohit: 0.85 m/s MV DecT: 342 ms MV A Rohit: 0.99 m/s MV E/A Ratio: 0.86 RAP: 5.00 mmHg RVSP: 21.70 mmHg FINDINGS -------- Sinus rhythm. This was a technically good study. The left ventricular size is normal. There is borderline concentric left ventricular hypertrophy. Overall left ventricular systolic function is normal with, an EF between 60 - 65 %. The right ventricle is normal in size. Normal LA size by volume 22+/-6 ml/m2. The right atrium is normal in size. Contrast study was performed with 2 iv injections of 8 ccs of agitated normal saline, at rest, and wi th cough. Patent foramen ovale present with right to left shunt. Bubble study suggests cross over of few bubble s from RT to Left . Advised DEVONTE. The aortic valve is trileaflet and appears structurally normal. Trace to mild aortic regurgitation. The mitral valve is normal. Mild tricuspid regurgitation present. Right ventricular systolic pressure is normal at < 35 mmHg. Trace/mild (physiologic) pulmonic regurgitation. The aortic root size is normal. Normal inferior vena cava with normal inspiratory collapse consistent with estimated right atrial pre ssure of 5 mmHg. There is no pericardial effusion. CONCLUSIONS -------- 1. Sinus rhythm. 2. This was a technically good study. 3. The left ventricular size is normal. 4. There is borderline concentric left ventricular hypertrophy. 5. Overall left ventricular systolic function is normal with, an EF between 60 - 65 %. 6. The right ventricle is normal in size. 7. Normal LA size by volume 22+/-6 ml/m2. 8. The right atrium is normal in size. 9. Contrast study was performed with 2 iv injections of 8 ccs of agitated normal saline, at rest, and with cough. 10. Patent foramen ovale present with right to left shunt. Bubble study suggests cross over of few bu bbles from RT to Left . Advised DEVONTE. 11. The aortic valve is trileaflet and appears structurally normal. 12. Trace to mild aortic regurgitation. 13. The mitral valve is normal. 14. Mild tricuspid regurgitation present. 15. Right ventricular systolic pressure is normal at < 35 mmHg. 16. Trace/mild (physiologic) pulmonic regurgitation. 17. The aortic root size is normal. 18. Normal inferior vena cava with normal inspiratory collapse consistent with estimated right atrial pressure of 5 mmHg. 19. There is no pericardial effusion. BULL GANG WORKER: Francheska Hall RDCS
[2019-09-15] MEDS ORDERED: LISINOPRIL 5 MG TAB PO SCH (09:00)
== END 2019-09-14 19:02 | disposition home or self-care (01) ==
LOC: EC 10:10 → 3SCARD 12:57 → INTOOBSV 12:57 → 3SCARD 16:36 → UNDODISIN 09-14 19:02
PROVIDERS: ADMIT Hospitalist; ATTEND Hospitalist
DX: R20.0 Anesthesia of skin (principal); R20.2 Paresthesia of skin; I16.0 Hypertensive urgency; I10 Essential (primary) hypertension; Z86.73 Personal history of transient ischemic attack (TIA), and cerebral infarction without residual deficits; E11.319 Type 2 diabetes mellitus with unspecified diabetic retinopathy without macular edema; K21.9 Gastro-esophageal reflux disease without esophagitis; M19.90 Unspecified osteoarthritis, unspecified site; E03.9 Hypothyroidism, unspecified; Z85.038 Personal history of other malignant neoplasm of large intestine; Z90.49 Acquired absence of other specified parts of digestive tract; Z87.891 Personal history of nicotine dependence; R94.01 Abnormal electroencephalogram [EEG]; I99.9 Unspecified disorder of circulatory system; H54.62 Unqualified visual loss, left eye, normal vision right eye; E78.5 Hyperlipidemia, unspecified; G31.9 Degenerative disease of nervous system, unspecified; I67.82 Cerebral ischemia; I08.2 Rheumatic disorders of both aortic and tricuspid valves; Z79.899 Other long term (current) drug therapy; Z79.84 Long term (current) use of oral hypoglycemic drugs; Z79.890 Hormone replacement therapy; Z88.5 Allergy status to narcotic agent; Z91.041 Radiographic dye allergy status; Z88.0 Allergy status to penicillin; Z88.8 Allergy status to other drugs, medicaments and biological substances; Z88.2 Allergy status to sulfonamides; Z88.6 Allergy status to analgesic agent; Z90.89 Acquired absence of other organs; Z98.890 Other specified postprocedural states; Z91.89 Other specified personal risk factors, not elsewhere classified; Z86.69 Personal history of other diseases of the nervous system and sense organs; Z87.828 Personal history of other (healed) physical injury and trauma; Z80.0 Family history of malignant neoplasm of digestive organs
CPT/HCPCS: 96372; 96361; 96374; 99285; 36415; 95819; 93005; 93306; 97165; 92523; 80061; 80053; 80048; 84484; 85025 ×2; 85610; 85730; 71046; 93880; 70450; 70551; 70544; G0378 ×2; J0360; J1644

== ENCOUNTER → 2020-04-02 | Day surgery (SDC) | payer MEDICARE, OTHER ==
[2020-03-28 16:06] VITALS: BMI 30.9
[~2020-04-02] MED LIST changes: +LIDOCAINE 1% INJ 10MG/ML (20 ML MDV) ONE; +PROPOFOL 10 MG/ML 20 ML VIAL IV ONE
[2020-04-02 07:54] VITALS: TEMP 98.2
[2020-04-02 08:02] LABS: Glucose,Whole Blood 121 mg/dL (75-99)
--- NOTE | 2020-04-02 09:10 | P.PCN ---
Date of Procedure: 04/02/20 Procedure(s) Performed: BRIEF HISTORY: Patient is a 74-year-old pleasant- white female scheduled for an elective colonoscopy as a part of surveillance of prior history of colon cancer diagnosed in 2009. Her last colonoscopy was 3 years ago And was noted to have a colon polyp.\ PROCEDURE PERFORMED: Colonoscopy. PREOPERATIVE DIAGNOSIS: History of colon cancer diagnosed in 2009/history of colon polyps . IV sedation per Anesthesia. PROCEDURE: After informed consent was obtained, the patient, was brought into the endoscopy unit. IV sedation was administered by Anesthesia under continuous monitoring. Digital rectal examination was normal. Initially the Olympus CF-160 flexible video colonoscope was then inserted in the rectum, gradually advanced into the right colon without any difficulty. Careful examination was performed as the scope was gradually being withdrawn. The anastomosis appeared normal. Because of the ascending colon, transverse colon, descending colon, sigmoid colon, and rectum appeared normal. Retroflexion was performed in the rectum and no lesions were seen. The patient tolerated the procedure well. IMPRESSION: Normal-appearing colon from rectum to the right colon with no evidence of colorectal neoplasia RECOMMENDATIONS: Findings of this examination were discussed with the patient as well as her family. She was advised to have a repeat surveillance colonoscopy in 3 years from now because of prior history of colon cancer.
[2020-04-02 09:16] VITALS: RESP 14
[2020-04-02 09:38] VITALS: BP 101/55; PULSE 65
== END ==
LOC: ORWHC2ENDO 07:26
PROVIDERS: ATTEND Internal Medicine Gastroenterology
DX: Z12.11 Encounter for screening for malignant neoplasm of colon (principal); Z86.010 Personal history of colon polyps; Z85.038 Personal history of other malignant neoplasm of large intestine; I10 Essential (primary) hypertension; E78.5 Hyperlipidemia, unspecified; E11.319 Type 2 diabetes mellitus with unspecified diabetic retinopathy without macular edema; E07.9 Disorder of thyroid, unspecified; Z88.0 Allergy status to penicillin; Z88.2 Allergy status to sulfonamides; Z88.5 Allergy status to narcotic agent; Z88.8 Allergy status to other drugs, medicaments and biological substances; Z91.041 Radiographic dye allergy status; Z79.890 Hormone replacement therapy; Z79.82 Long term (current) use of aspirin; Z79.899 Other long term (current) drug therapy; Z90.49 Acquired absence of other specified parts of digestive tract; Z90.89 Acquired absence of other organs; Z98.890 Other specified postprocedural states
CPT/HCPCS: J2001; J2704; G0105

== ENCOUNTER → 2020-05-20 | Outpatient (CLI) | payer MEDICARE, OTHER ==
--- NOTE | 2020-05-26 10:03 | MM ---
Reason for exam: screening (asymptomatic). Last mammogram was performed 1 year and 5 months ago. History: Patient is postmenopausal and has history of colon cancer at age 63. Benign left mammotome panel of the left breast, July 05, 2007. Took hormonal contraceptives for 3 years beginning at age 19. Physical Findings: A clinical breast exam by your physician is recommended on an annual basis and results should be correlated with mammographic findings. MG 3D Screening Mammo W/Cad Bilateral CC and MLO view(s) were taken. Prior study comparison: December 04, 2018, bilateral MG 3d screening mammo w/cad. December 01, 2017, bilateral MG 3d screening mammo w/cad. The breast tissue is heterogeneously dense. This may lower the sensitivity of mammography. There are benign appearing vascular calcifications bilaterally. There are grouped benign calcifications right middle lower inner quadrant, stable. Previous mammotome biopsy in the left breast. There is no discrete abnormality. ASSESSMENT: Benign, BI-RAD 2 RECOMMENDATION: Routine screening mammogram of both breasts in 1 year.
== END | disposition home or self-care (01) ==
LOC: RADMAMWWP 10:06
PROVIDERS: ATTEND Family Medicine
DX: Z12.31 Encounter for screening mammogram for malignant neoplasm of breast (principal)
CPT/HCPCS: 77063; 77067

== ENCOUNTER → 2020-06-04 | Outpatient (CLI) | payer MEDICARE, OTHER ==
--- NOTE | 2020-06-05 08:02 | BD ---
EXAMINATION TYPE: Axial Bone Density DATE OF EXAM: 06/04/2020 COMPARISON: NONE CLINICAL HISTORY: Postmenopausal female, Z 78.0 Height: 62.5 IN Weight: 192 LBS FRAX RISK QUESTIONS: History of Fracture in Adulthood: RIBS AGE 58 Secondary Osteoporosis: 3. Menopause before 45: AGE 40 5. Chronic liver disease: FATTY LIVER DISEASE RISK FACTORS HISTORY OF: Family History of Osteoporosis: YES MOTHER Active: YES Diet low in dairy products/other sources of calcium: YES Postmenopausal woman: AGE 40 Take estrogen and/or progesterone medications: NOT NOW How long: TOOK CONTROL FOR 8 YEARS MEDICATIONS: Thyroid Medications: YES Which medication: Levothyroxine How Lon+ YEARS Additional Medications: CALCIUM, VIT D, LEVOTHYROXINE, VIT C, BLOOD PRESSURE MEDS, DIABETES MEDS, CHO LESTEROL MED Additional History: COLON CANCER AGE 64 EXAM MEASUREMENTS: Bone mineral densitometry was performed using the [email or web address] System. Bone mineral density as measured about the Lumbar spine is: ----- L1-L4(G/cm2): 1.141 T Score Values are as follows: ----- L2: -0.5 ----- L3: 1.1 ----- L4: -1.0 ----- L1-L4: -0.3 Bone mineral density BASELINE Bone mineral density about the R hip (g/cm2): 0.808 Bone mineral density about the L hip (g/cm2): 0.814 T Score values are as follows: -----R Neck: -1.7 -----L Neck: -1.6 -----R Total: -1.0 -----L Total: -0.8 Bone mineral density BASELINE IMPRESSION: Osteopenia NOTE: T-SCORE=SD OF THE YOUNG ADULT MEAN.
== END | disposition home or self-care (01) ==
LOC: RADBDWWP 05-23 07:50
PROVIDERS: ATTEND Family Medicine
DX: M85.80 Other specified disorders of bone density and structure, unspecified site (principal); Z78.0 Asymptomatic menopausal state
CPT/HCPCS: 77080

== ENCOUNTER → 2021-06-08 | Outpatient (CLI) | payer MEDICARE, OTHER ==
--- NOTE | 2021-06-09 14:17 | MM ---
Reason for exam: screening (asymptomatic). Last mammogram was performed 1 year and 1 month ago. History: Patient is postmenopausal and has history of colon cancer at age 63. Benign left mammotome panel of the left breast, July 05, 2007. Took hormonal contraceptives for 3 years beginning at age 19. Physical Findings: A clinical breast exam by your physician is recommended on an annual basis and results should be correlated with mammographic findings. MG 3D Screening Mammo W/Cad Bilateral CC and MLO view(s) were taken. Prior study comparison: May 20, 2020, bilateral MG 3d screening mammo w/cad. December 04, 2018, bilateral MG 3d screening mammo w/cad. There are scattered fibroglandular densities. Previous mammotome biopsy in the left breast. Benign vascular calcifications. No significant changes when compared with prior studies. ASSESSMENT: Negative, BI-RAD 1 RECOMMENDATION: Routine screening mammogram of both breasts in 1 year.
== END | disposition home or self-care (01) ==
LOC: RADMAMWWP 14:50
PROVIDERS: ATTEND Family Medicine
DX: Z12.31 Encounter for screening mammogram for malignant neoplasm of breast (principal); Z78.0 Asymptomatic menopausal state; Z85.038 Personal history of other malignant neoplasm of large intestine
CPT/HCPCS: 77063; 77067

== ENCOUNTER 2022-03-30 12:08 | Emergency (ER) | payer MEDICARE, OTHER ==
--- NOTE | 2022-03-30 13:38 | XR ---
EXAMINATION TYPE: XR chest 2V DATE OF EXAM: 03/30/2022 COMPARISON: 09/13/2019 TECHNIQUE: PA and lateral views submitted. HISTORY: Shortness of breath FINDINGS: The lungs are clear and there is no pneumothorax, pleural effusion, or focal pneumonia. Heart size enlarged. Coarsened interstitium with biapical pleural thickening. Left-sided chronic rib deformities are seen. Hypertrophic and degenerative changes spine. Surgical clips in the abdomen noted. IMPRESSION: 1. No acute process. Cardiomegaly and COPD correlate for chronic interstitial lung disease.
[2022-03-30 13:53] LABS: Basophils % (A) 1 %; Eosinophils % (A) 0 %; HCT 42.9 % (34.0-46.0); Lymphocytes # (A) 0.6 k/uL (1.0-4.8); Lymphocytes % (A) 18 %; MCH 30.8 pg (25.0-35.0); MCHC 32.6 g/dL (31.0-37.0); MCV 94.3 fL (80.0-100.0); Mean Platelet Volume 8.2; Monocytes # (A) 0.4 k/uL (0-1.0); Monocytes % (A) 11 %; Neutrophils # (A) 2.1 k/uL (1.3-7.7); Neutrophils % (A) 67 %; Platelet Count 156 k/uL (150-450); RBC 4.55 m/uL (3.80-5.40); RDW 14.4 % (11.5-15.5); WBC 3.2 k/uL (3.8-10.6)
[2022-03-30 14:05] LABS: Partial Thromboplastin Time 25.2 sec (22.0-30.0); Prothrombin Time 10.5 sec (9.0-12.0)
[2022-03-30 14:06] LABS: African American GFR (CKD) >90 (>60 ml/min/1.73 sqM); Anion Gap 12 mmol/L; Blood Urea Nitrogen 17 mg/dL (7-17); Calcium 9.1 mg/dL (8.4-10.2); Carbon Dioxide 29 mmol/L (22-30); Chloride 93 mmol/L (98-107); Glucose 151 mg/dL (74-99); Magnesium 1.8 mg/dL (1.6-2.3); Non-African American GFR(CKD) 84 (>60 ml/min/1.73 sqM); Potassium 3.8 mmol/L (3.5-5.1); Sodium 134 mmol/L (137-145)
--- NOTE | 2022-03-30 14:24 | ED ---
General Adult HPI - General Chief complaint: Upper Respiratory Infection Stated complaint: nose bleed,flu like symptoms Time Seen by Provider: 03/30/22 13:48 Source: patient, RN notes reviewed, old records reviewed Mode of arrival: ambulatory Limitations: no limitations - History of Present Illness Initial comments: 76-year-old female presenting with nasal congestion, nosebleed, although that past 4 days. Patient denies fever. Denies chest pain. She's had some cough and congestion as well. No abdominal pain. She states she's had multiple nosebleeds and had tried intranasal spray. - Related Data Home Medications Medication Instructions Recorded Confirmed Dapagliflozin Propanediol [Farxiga] 5 mg PO QAM 03/28/17 03/28/20 Pioglitazone HCl [Actos] 30 mg PO HS 03/28/17 03/28/20 Albuterol Sulfate [Proair Hfa] 1 - 2 puff INHALATION RT-Q6H PRN 09/13/19 03/28/20 Levothyroxine Sodium [Synthroid] 100 mcg PO DAILY 09/13/19 03/28/20 Metoprolol Tartrate [Lopressor] 25 mg PO BID 09/13/19 03/28/20 lisinopriL [Zestril] 10 mg PO 1700 09/13/19 03/28/20 Calcium/Magnesium/Zinc 1 each PO DAILY 03/28/20 03/28/20 [Qnpsyei-Rwtoxdlej-Xcru Tablet] Cholecalciferol [Vitamin D3 (25 1,000 unit PO DAILY 03/28/20 03/28/20 Mcg = 1000 Iu)] Co Q-10 (Unknown Dose) 1 tab PO DAILY 03/28/20 03/28/20 Relive Nutritional Drink 2 dose PO DAILY 03/28/20 03/28/20 Turmeric Root Extract [Turmeric] 500 mg PO DAILY 03/28/20 03/28/20 Previous Rx's Medication Instructions Recorded Aspirin EC [Ecotrin Low Dose] 81 mg PO DAILY #30 tablet. 09/14/19 Nirmatrelvir/Ritonavir [Paxlovid 1 each PO BID 5 Days #30 tab 03/30/22 2X150 mg-100 mg (Eua)] Allergies Allergy/AdvReac Type Severity Reaction Status Date / Time codeine Allergy Rash/Hives Verified 03/30/22 12:31 Iodinated Contrast Media Allergy Anaphylaxis Verified 03/30/22 12:31 [Iodinated Contrast- Oral and IV Dye] Penicillins Allergy Rash/Hives Verified 03/30/22 12:31 prednisone Allergy Nausea & Verified 03/30/22 12:31 Vomiting Sulfa (Sulfonamide Allergy Rash/Hives Verified 03/30/22 12:31 Antibiotics) Review of Systems ROS Statement: Those systems with pertinent positive or pertinent negative responses have been documented in the HPI. ROS Other: All systems not noted in ROS Statement are negative. Past Medical History Past Medical History: Cancer, Diabetes Mellitus, Eye Disorder, GERD/Reflux, Hypertension, Osteoarthritis (OA), Thyroid Disorder, Vascular Disorder Additional Past Medical History / Comment(s): Hx Colon cancer 2009, had surgery only, no other treatment. Trigger thumb right thumb. Venous Insufficiency. Diabetic Retionopathy, bilaterally, hx left ocular stroke. History of Any Multi-Drug Resistant Organisms: None Reported Past Surgical History: Cholecystectomy, Tonsillectomy Additional Past Surgical History / Comment(s): D&C, Colon surgery for colon cancer, Colonosopy. Past Anesthesia/Blood Transfusion Reactions: Previous Problems w/ Anesthesia, Motion Sickness Additional Past Anesthesia/Blood Transfusion Reaction / Comment(s): Difficulty waking up from surgery X1 surgery. Past Psychological History: Anxiety Smoking Status: Former smoker Past Alcohol Use History: None Reported Past Drug Use History: None Reported - Past Family History Mother Family Medical History: Cancer Additional Family Medical History / Comment(s): Colon Cancer. Father Family Medical History: CVA/TIA Sister(s) Additional Family Medical History / Comment(s): ?blood clots. General Exam Limitations: no limitations General appearance: alert, in no apparent distress Head exam: Present: atraumatic, normocephalic Eye exam: Present: normal appearance, PERRL ENT exam: Present: normal oropharynx, mucous membranes moist Neck exam: Present: normal inspection. Absent: tenderness Respiratory exam: Present: normal lung sounds bilaterally. Absent: respiratory distress, wheezes Cardiovascular Exam: Present: regular rate, normal rhythm GI/Abdominal exam: Present: soft. Absent: distended, tenderness, guarding Extremities exam: Present: normal inspection, normal capillary refill. Absent: pedal edema Neurological exam: Present: alert, oriented X3, CN II-XII intact. Absent: motor sensory deficit Psychiatric exam: Present: normal affect, normal mood Skin exam: Present: warm, dry, intact. Absent: cyanosis, diaphoretic Course Vital Signs 03/30/22 12:27 Temperature 99.3 F Pulse Rate 69 Respiratory 18 Rate Blood Pressure 184/71 O2 Sat by Pulse 96 Oximetry EKG Findings - EKG Comments: EKG Findings:: EKG: Sinus rhythm rate of 60, RI interval 170, QRS duration 86, QTC [address] segment elevation. Medical Decision Making - Lab Data Result diagrams: 03/30/22 13:38 03/30/22 13:38 Lab Results 03/30/22 03/30/22 03/30/22 Range/Units 13:25 13:25 13:38 WBC 3.2 L (3.8-10.6) k/uL RBC 4.55 (3.80-5.40) m/uL Hgb 14.0 (11.4-16.0) gm/dL Hct 42.9 (34.0-46.0) % MCV 94.3 (80.0-100.0) fL MCH 30.8 (25.0-35.0) pg MCHC 32.6 (31.0-37.0) g/dL RDW 14.4 (11.5-15.5) % Plt Count 156 (150-450) k/uL MPV 8.2 Neutrophils % 67 % Lymphocytes % 18 % Monocytes % 11 % Eosinophils % 0 % Basophils % 1 % Neutrophils # 2.1 (1.3-7.7) k/uL Lymphocytes # 0.6 L (1.0-4.8) k/uL Monocytes # 0.4 (0-1.0) k/uL Eosinophils # 0.0 (0-0.7) k/uL Basophils # 0.0 (0-0.2) k/uL PT (9.0-12.0) sec INR (<1.2) APTT (22.0-30.0) sec Sodium (137-145) mmol/L Potassium (3.5-5.1) mmol/L Chloride (98-107) mmol/L Carbon Dioxide (22-30) mmol/L Anion Gap mmol/L BUN (7-17) mg/dL Creatinine (0.52-1.04) mg/dL Est GFR (CKD-EPI)AfAm (>60 ml/min/1.73 sqM) Est GFR (CKD-EPI)NonAf (>60 ml/min/1.73 sqM) Glucose (74-99) mg/dL Calcium (8.4-10.2) mg/dL Magnesium (1.6-2.3) mg/dL Troponin I (0.000-0.034) ng/mL Coronavirus (PCR) Detected A (Not Detectd) Influenza Type A RNA Not Detected (Not Detectd) Influenza Type B (PCR) Not Detected (Not Detectd) 03/30/22 03/30/22 03/30/22 Range/Units 13:38 13:38 13:38 WBC (3.8-10.6) k/uL RBC (3.80-5.40) m/uL Hgb (11.4-16.0) gm/dL Hct (34.0-46.0) % MCV (80.0-100.0) fL MCH (25.0-35.0) pg MCHC (31.0-37.0) g/dL RDW (11.5-15.5) % Plt Count (150-450) k/uL MPV Neutrophils % % Lymphocytes % % Monocytes % % Eosinophils % % Basophils % % Neutrophils # (1.3-7.7) k/uL Lymphocytes # (1.0-4.8) k/uL Monocytes # (0-1.0) k/uL Eosinophils # (0-0.7) k/uL Basophils # (0-0.2) k/uL PT 10.5 (9.0-12.0) sec INR 1.0 (<1.2) APTT 25.2 (22.0-30.0) sec Sodium 134 L (137-145) mmol/L Potassium 3.8 (3.5-5.1) mmol/L Chloride 93 L (98-107) mmol/L Carbon Dioxide 29 (22-30) mmol/L Anion Gap 12 mmol/L BUN 17 (7-17) mg/dL Creatinine 0.69 (0.52-1.04) mg/dL Est GFR (CKD-EPI)AfAm >90 (>60 ml/min/1.73 sqM) Est GFR (CKD-EPI)NonAf 84 (>60 ml/min/1.73 sqM) Glucose 151 H (74-99) mg/dL Calcium 9.1 (8.4-10.2) mg/dL Magnesium 1.8 (1.6-2.3) mg/dL Troponin I <0.012 (0.000-0.034) ng/mL Coronavirus (PCR) (Not Detectd) Influenza Type A RNA (Not Detectd) Influenza Type B (PCR) (Not Detectd) Disposition Clinical Impression: COVID-19 Disposition: HOME SELF-CARE Condition: Fair Instructions (If sedation given, give patient instructions): COVID-19 (Coronavirus Disease 2019) (ED) Prescriptions: Nirmatrelvir/Ritonavir [Paxlovid 2X150 mg-100 mg (Eua)] 1 each PO BID 5 Days #30 tab Is patient prescribed a controlled substance at d/c from ED?: No Referrals: Kenneth Casey MD [Primary Care Provider] - 1-2 days Time of Disposition: 14:41
[2022-03-30 15:23] VITALS: BP 113/71; PULSE 56; RESP 17; TEMP 97.2
== END 2022-03-30 15:20 | disposition home or self-care (01) ==
LOC: EC 12:08
DX: U07.1 COVID-19 (principal); E11.9 Type 2 diabetes mellitus without complications; K21.9 Gastro-esophageal reflux disease without esophagitis; Z79.83 Long term (current) use of bisphosphonates; E07.9 Disorder of thyroid, unspecified; Z79.899 Other long term (current) drug therapy; Z87.891 Personal history of nicotine dependence; Z88.5 Allergy status to narcotic agent; Z88.0 Allergy status to penicillin; Z88.8 Allergy status to other drugs, medicaments and biological substances; Z88.2 Allergy status to sulfonamides
CPT/HCPCS: 36415; 71046; 80048; 83735; 84484; 85025; 85610; 85730; 87502; 87635; 93005; 99284

== ENCOUNTER → 2022-07-27 | Outpatient (CLI) | payer MEDICARE, OTHER ==
--- NOTE | 2022-07-27 17:52 | BD ---
EXAMINATION TYPE: Axial Bone Density DATE OF EXAM: 07/27/2022 CLINICAL HISTORY: 76 years year old Female. ICD-10 CODE: Z78.[address] Height: 5 FT 2 3/4 IN Weight: 208 FRAX RISK QUESTIONS: Alcohol (3 or more units per day): NO Family History (Parent hip fracture): NO Glucocorticoids (More than 3mos): NO (Ex: prednisone, prednisolone, methylprednisolone, dexamethasone, and hydrocortisone). History of Fracture in Adulthood: YES Secondary Osteoporosis: 1. Type 1 Diabetes: TYPE 2 2. Hyperthyroidism: NO 3. Menopause before 45: NO 4. Malnutrition: NO 5. Chronic liver disease: FATTY Rheumatoid Arthritis: NO Current Tobacco Use: NO RISK FACTORS HISTORY OF: Surgery to Spine/Hip(right/left)/Wrist (right/left): NO Family History of Osteoporosis: YES Active: SOMEWHAT Diet low in dairy products/other sources of calcium: NO Postmenopausal woman: YES Take estrogen and/or progesterone medications: NO Lost more than 2 inches in height since high school: YES Frequent falls: NO Poor Health: FAIR Hyperparathyroidism: NO Adrenal Insufficiency: NO MEDICATIONS: Thyroid Medications: YES Which medication: SYNTHROID How Long: APPROX 20 YEARS Additional Medications: SYNTHROID, FORSIGA, ACT OSE, CHOLESTEROL MEDS, METOPROLOL, H2O MEDS NEEDE D, Additional History: EXAM MEASUREMENTS: Bone mineral densitometry was performed using the [employer] System. Bone mineral density as measured about the Lumbar spine is: ----- L1-L4(G/cm2): 1.163 T Score Values are as follows: ----- L1: -0.5 ----- L2: -0.1 ----- L3: 0.5 ----- L4: -0.5 ----- L1-L4: -0.1 Bone mineral density has: INCREASED 0.8 % since study of: 2019 Bone mineral density about the R hip (g/cm2): 0.810 Bone mineral density about the L hip (g/cm2): 0.814 T Score values are as follows: -----R Neck: -1.6 -----L Neck: -1.6 -----R Total: -1.0 -----L Total: -0.7 Bone mineral density has: INCREASED 0.8 % since study of: 2020 FRAX%s: The graph provided illustrates a 18.0% chance for a major osteoporotic fx and a 3.8 % chance for the hips probability for fx in 10 years time. IMPRESSION: Osteopenia (T Score between -2.5 and -1). There is slightly increased risk of fracture and the patient may be considered for treatment. Re-Screen 2-5 years. NOTE: T-SCORE=SD OF THE YOUNG ADULT MEAN.
--- NOTE | 2022-07-28 10:39 | MM ---
Reason for Exam: Screening (asymptomatic). Last mammogram was performed 1 year(s) and 1 month(s) ago. Patient History: Menarche at age 9. First Full-Term at age 17. Postmenopausal. Colorectal cancer, age 63. Hormonal Contraceptives, starting at age 19 for 3 years. 07/05/2007, Benign Core Biopsy on the left side. Risk Values: Ara 5 year model risk: 1.6%. NCI Lifetime model risk: 2.9%. Prior Study Comparison: 12/04/2018 Bilateral Screening Mammogram, [facility]. 05/20/2020 Bilateral Screening Mammogram, [facility]. 06/08/2021 Bilateral Screening Mammogram, [facility]. Tissue Density: There are scattered fibroglandular densities. Findings: Analyzed By CAD. Parenchymal pattern appears symmetrical and stable. 8 core markers within the left breast. Benign appearing vascular calcification is present. Within the left medial lateral oblique view is a group of punctate calcifications near vascular calcification lateral left mid breast. This is a change from comparison. Closer evaluation is recommended. Overall Assessment: Incomplete: need additional imaging evaluation, BI-RAD 0 Management: Diagnostic Mammogram of the left breast. A negative mammogram report should not preclude additional follow up of suspicious palpable abnormalities. Patient should continue monthly self breast exam. A clinical breast exam by your physician is recommended on an annual basis and results should be correlated with mammographic findings. Electronically signed and approved by: Brian Hermosillo D.O. Radiologis
== END | disposition home or self-care (01) ==
LOC: RADMAMWWP 14:47
PROVIDERS: ATTEND Family Medicine
DX: Z12.31 Encounter for screening mammogram for malignant neoplasm of breast (principal); M85.89 Other specified disorders of bone density and structure, multiple sites; E10.9 Type 1 diabetes mellitus without complications; Z78.0 Asymptomatic menopausal state
CPT/HCPCS: 77063; 77067; 77080

== ENCOUNTER → 2022-07-30 | Outpatient (CLI) | payer MEDICARE, OTHER ==
--- NOTE | 2022-07-30 10:49 | MM ---
Reason for Exam: Additional evaluation requested from abnormal screening. Last screening mammogram was performed less than 1 month ago. Patient History: Menarche at age 9. First Full-Term at age 17. Postmenopausal. Colorectal cancer, age 63. Hormonal Contraceptives, starting at age 19 for 3 years. 07/05/2007, Benign Core Biopsy on the left side. Risk Values: Ara 5 year model risk: 1.6%. NCI Lifetime model risk: 2.9%. Prior Study Comparison: 05/20/2020 Bilateral Screening Mammogram, [facility]. 06/08/2021 Bilateral Screening Mammogram, [facility]. 07/27/2022 Bilateral MG 3D screening mammo w/cad, [facility]. Tissue Density: Left: There are scattered fibroglandular densities. Findings: Analyzed By CAD. The calcifications within the medial inferior left breast are consistent with vascular calcifications. Overall Assessment: Benign, BI-RAD 2 Management: Screening Mammogram of both breasts in 1 year. A clinical breast exam by your physician is recommended on an annual basis and results should be correlated with mammographic findings. This exam should not preclude additional follow-up of suspicious palpable abnormalities. Results were given to the patient verbally at the time of exam. Electronically signed and approved by: Mick Machuca D.O.
== END | disposition home or self-care (01) ==
LOC: RADMAMWWP 10:14
PROVIDERS: ATTEND Family Medicine
DX: R92.8 Other abnormal and inconclusive findings on diagnostic imaging of breast (principal); Z78.0 Asymptomatic menopausal state; Z98.890 Other specified postprocedural states
CPT/HCPCS: 77065; G0279; 77061

== ENCOUNTER 2023-07-05 08:03 | Day surgery (SDC) | payer MEDICARE, OTHER ==
[2023-07-04 10:03] VITALS: BMI 36.0
[~2023-07-05 08:03] MED LIST changes: -LIDOCAINE 1% INJ 10MG/ML (20 ML MDV) ONE; -PROPOFOL 10 MG/ML 20 ML VIAL IV ONE
[2023-07-05 08:59] LABS: Glucose,Whole Blood 130 mg/dL (70-110)
[2023-07-05 09:02] VITALS: TEMP 98
[2023-07-05] MEDS ORDERED: PROPOFOL 10 MG/ML 20 ML VIAL IV ONE (09:23)
--- NOTE | 2023-07-05 09:36 | P.PCN ---
Date of Procedure: 07/05/23 Procedure(s) Performed: BRIEF HISTORY: Patient is a 77-year-old pleasant white female scheduled for an elective colonoscopy as a part of screening for colon cancer. She was diagnosed with colon cancer in 2009 and is status post right hemicolectomy. Last colonoscopy was 3 years ago and was normal. PROCEDURE PERFORMED: Colonoscopy. PREOPERATIVE DIAGNOSIS: Screening for colon cancer and history of colon cancer diagnosed in 1999.. IV sedation per Anesthesia. PROCEDURE: After informed consent was obtained, the patient, was brought into the endoscopy unit. IV sedation was administered by Anesthesia under continuous monitoring. Digital rectal examination was normal. Initially the Olympus CF-160 flexible video colonoscope was then inserted in the rectum, gradually advanced into the right colon with a liquid anastomosis was visualized and appeared normal. Because of the ascending colon,, transverse colon, descending colon, sigmoid colon, and rectum appeared normal. Retroflexion was performed in the rectum and no lesions were seen. The patient tolerated the procedure well. IMPRESSION: Normal-appearing colon from rectum to right colon with normal- appearing ileocolonic anastomosis. RECOMMENDATIONS: Findings of this examination were discussed with the patient as well as a family. She was advised to have a repeat colonoscopy in 3 years from now because of the prior history of colon cancer.
[2023-07-05 09:51] VITALS: RESP 16
[2023-07-05 10:14] VITALS: BP 161/80; PULSE 65
== END 2023-07-05 10:25 | disposition home or self-care (01) ==
LOC: ORWHC2ENDO 08:03
PROVIDERS: ATTEND Internal Medicine Gastroenterology
DX: Z12.11 Encounter for screening for malignant neoplasm of colon (principal); I10 Essential (primary) hypertension; E78.5 Hyperlipidemia, unspecified; E11.9 Type 2 diabetes mellitus without complications; E07.9 Disorder of thyroid, unspecified; F32.A Depression, unspecified; F41.9 Anxiety disorder, unspecified; K21.9 Gastro-esophageal reflux disease without esophagitis; Z86.010 Personal history of colon polyps; Z87.891 Personal history of nicotine dependence; Z79.890 Hormone replacement therapy; Z79.84 Long term (current) use of oral hypoglycemic drugs; Z79.899 Other long term (current) drug therapy; Z90.49 Acquired absence of other specified parts of digestive tract; Z90.710 Acquired absence of both cervix and uterus; Z88.5 Allergy status to narcotic agent; Z88.2 Allergy status to sulfonamides; Z88.8 Allergy status to other drugs, medicaments and biological substances; Z91.041 Radiographic dye allergy status
CPT/HCPCS: J2704; G0105; 45378

== ENCOUNTER → 2023-09-01 | Outpatient (CLI) | payer MEDICARE, OTHER ==
--- NOTE | 2023-09-02 10:02 | MM ---
Reason for Exam: Screening (asymptomatic). Last mammogram was performed 1 year(s) and 2 month(s) ago. Patient History: Menarche at age 9. First Full-Term at age 17. Postmenopausal. Patient has history of breast feeding. Colorectal cancer, age 63. Hormonal Contraceptives, starting at age 19 for 3 years. 07/05/2007, Benign Core Biopsy on the left side. Risk Values: Ara 5 year model risk: 1.6%. NCI Lifetime model risk: 2.6%. Prior Study Comparison: 06/08/2021 Bilateral Screening Mammogram, [facility]. 07/27/2022 Bilateral MG 3D screening mammo w/cad, [facility]. 07/30/2022 Left MG 3D work up w/cad , [facility]. Tissue Density: There are scattered fibroglandular densities. Findings: Analyzed By CAD. There is no suspicious group of microcalcifications or new suspicious mass in either breast. Overall Assessment: Benign, BI-RAD 2 Management: Screening Mammogram of both breasts in 1 year. . Patient should continue monthly self-breast exams. A clinical breast exam by your physician is recommended on an annual basis. This exam should not preclude additional follow-up of suspicious palpable abnormalities. Note on Ara scores and lifetime risk: 1. A Ara score greater than 3% is considered moderate risk. If this is the case, consider specialist referral to assess eligibility for a risk reducing agent. 2. If overall lifetime risk for the development of breast cancer is 20% or higher, the patient may qualify for future screening with alternating mammogram and breast MRI. Electronically signed and approved by: Akshat Perez M.D. Radiologis
== END | disposition home or self-care (01) ==
LOC: RADMAMWWP 16:02
PROVIDERS: ATTEND Family Medicine
DX: Z12.31 Encounter for screening mammogram for malignant neoplasm of breast (principal); Z78.0 Asymptomatic menopausal state
CPT/HCPCS: 77063; 77067

== ENCOUNTER → 2025-02-26 | Outpatient (CLI) | payer MEDICARE, OTHER ==
--- NOTE | 2025-02-26 18:05 | MM ---
Reason for Exam: Screening (asymptomatic). Last mammogram was performed 1 year(s) and 5 month(s) ago. Patient History: Menarche at age 9. First Full-Term at age 17. Postmenopausal. Patient has history of breast feeding. Colorectal cancer, age 63. Hormonal Contraceptives, starting at age 19 for 3 years. 07/05/2007, Benign Core Biopsy on the left side. Risk Values: Ara 5 year model risk: 1.5%. NCI Lifetime model risk: 2.2%. Prior Study Comparison: 07/27/2022 Bilateral MG 3D screening mammo w/cad, [facility]. 07/30/2022 Left MG 3D work up w/cad , [facility]. 09/01/2023 Bilateral MG 3D screening mammo w/cad, [facility]. Tissue Density: There are scattered areas of fibroglandular density. Findings: Analyzed By CAD. Microclip left breast from prior biopsy. Benign bilateral vascular calcifications. There is no suspicious group of microcalcifications or new suspicious mass in either breast. Overall Assessment: Benign, BI-RAD 2 Management: Screening Mammogram of both breasts in 1 year. Patient should continue monthly self-breast exams. A clinical breast exam by your physician is recommended on an annual basis. This exam should not preclude additional follow-up of suspicious palpable abnormalities. Note on Ara scores and lifetime risk: 1. A Ara score greater than 3% is considered moderate risk. If this is the case, consider specialist referral to assess eligibility for a risk reducing agent. 2. If overall lifetime risk for the development of breast cancer is 20% or higher, the patient may qualify for future screening with alternating mammogram and breast MRI. [facility], , 02/26/2025 6:02 PM. Electronically signed and approved by: Boogie Hatch M.D. Radiologist
== END | disposition home or self-care (01) ==
LOC: RADMAMWWP 15:31
PROVIDERS: ATTEND Family Medicine
DX: Z12.31 Encounter for screening mammogram for malignant neoplasm of breast (principal); R92.323 Mammographic fibroglandular density, bilateral breasts; Z78.0 Asymptomatic menopausal state; Z92.0 Personal history of contraception
CPT/HCPCS: 77063; 77067